=== PATIENT | male | born 1975 ===

== ENCOUNTER 2017-10-07 10:00 | Inpatient (IN) | payer OTHER ==
[~2017-10-07] VITALS: Ht 188 cm; Wt 86.2 kg
[2017-10-16] MEDS ORDERED: Intestinex CAP PO (17:04)
[2017-10-16] MEDS ORDERED: OXYC1TAB9 PO (17:04)
[2017-10-16] MEDS ORDERED: PANTOPRAZOLE SO40 MG PO (17:04)
== END 2017-10-16 17:21 | disposition home or self-care (01) | DRG 330 ==
LOC: SURH 10-13 05:20 → O/R 10-13 05:20 → SURG 10-13 07:00 → SURH 10-13 12:17
PROVIDERS: Surgery
PROC: 0DJD8ZZ Inspection of Lower Intestinal Tract, Via Natural or Artificial Opening Endoscopic (ICD-10-PCS; 2017-10-13)
PROC: 0DTE4ZZ Resection of Large Intestine, Percutaneous Endoscopic Approach (ICD-10-PCS; principal; 2017-10-13 07:00)
DX: K57.20 Diverticulitis of large intestine with perforation and abscess without bleeding (principal); J30.89 Other allergic rhinitis